=== PATIENT | female | born 1955 | race Caucasian/White ===

== ENCOUNTER → 2017-01-02 | Outpatient (CLI) | payer MEDICARE ==
[~2017-01-02] VITALS: Ht 172.7 cm; Wt 88.6 kg
[~2017-01-02] MED LIST: BENZOCAINE 20% ORAL SPR 60 ML CAN OROPHARYNG ONE; FLUO20CA4 PO; GABA800T PO; LIDOCAINE HCL 2% JELLY 5 ML SYRINGE TOPICAL ONE; METH1POW42; METH750T PO; NABU1TAB33 PO; PANT40TA3 PO
[2017-01-02 07:35] VITALS: BP 136/82; PULSE 58; RESP 16; TEMP 97.5; O2SAT 100
== END ==
LOC: HEND 07:04
PROVIDERS: ATTEND Internal Medicine Gastroenterology
DX: K44.9 Diaphragmatic hernia without obstruction or gangrene (principal)
CPT/HCPCS: 91010